=== PATIENT | male | born 1945 | race Caucasian/White ===

== ENCOUNTER 2023-06-04 12:38 | Outpatient (CLI) | payer MEDICARE, BC, SELFPAY ==
--- NOTE | 2023-06-04 13:00 | CRLHL7_ITS ---
For Patients: As a result of the Century Cures Act, medical imaging exams and procedure reports are released immediately into your electronic medical record. You may view this report before your referring provider. If you have questions, please contact your health care provider. INDICATION: Low back pain. COMPARISON: None. TECHNIQUE: Sagittal T1, T2, and STIR sequences. Axial T1 and T2 weighted sequences. Post gadolinium T1 weighted sequences. FINDINGS: In sagittal plane, trace degenerative retrolisthesis of L2 on L3 and L3 on L4 measuring approximately 3 mm. Otherwise, normal alignment. No acute fractures. No ligamentous injury. Chronic anterior wedging and loss of height of the L2 vertebral body with a prominent Schmorl`s node at the superior endplate. Chronic mild loss of height of the L3 vertebral body secondary to a prominent Schmorl`s node along the inferior endplate. No suspicious osseous lesions. Normal conus terminates at L1. Marrow edema of the articular processes of the right L4-5 facet joint which may represent stress reaction or inflammation from facet arthritis. No suspicious osseous lesions. Number conus terminates at L1. [id number]: No spinal canal or neural foraminal narrowing. L1-2: Disc degeneration loss disc height. Diffuse disc bulge. No narrowing of spinal canal. No neural foraminal narrowing. L2-3: Grade 1 retrolisthesis. Disc degeneration posterior disc bulge. Postop changes of laminectomy. No narrowing of spinal canal. Mild narrowing of bilateral foramina. L3-4: Disc degeneration posted disc bulge. No narrowing of spinal canal. Mild narrowing of bilateral foramina. L4-5: Disc degeneration. No narrowing of spinal canal. Mild narrowing of bilateral foramina. Moderate facet arthropathy. L5-S1: No narrowing of spinal canal. No impingement of the traversing S1 nerve roots. Mild narrowing of bilateral foramina. Moderate facet arthropathy. Degenerative changes of the SI joints. IMPRESSION: 1. Trace degenerative retrolisthesis of L2 on L3 and L3 on L4. 2. No acute fractures. 3. Chronic anterior wedging and loss of height of the L2 vertebral body with prominent Schmorl`s nodes at superior endplates. 4. Chronic mild loss of height of L3. Prominent Schmorl`s node along the inferior endplate. 5. Marrow edema of the articular processes of the right L4-5 facet joint which may represent stress reaction or inflammation 6. At L2-3, mild narrowing of the bilateral neural foramina 7. At L3-4, mild narrowing of the bilateral neural foramina 8. At L4-5, mild narrowing of the bilateral neural foramina 9. At L5-S1, mild narrowing of the bilateral foramina Dictated by Yazan Ordoñez MD @ 06/05/2023 11:55:44 AM (Electronically Signed)
== END 2023-06-04 12:39 | disposition home or self-care (01) ==
PROVIDERS: Visit Provider Internal Medicine Hematology
DX: M54.50 Low back pain, unspecified (principal); M51.46 Schmorl's nodes, lumbar region; M51.26 Other intervertebral disc displacement, lumbar region; M51.27 Other intervertebral disc displacement, lumbosacral region
CPT/HCPCS: 72158; A9575